=== PATIENT | female | born 1995 | race Caucasian/White ===

== ENCOUNTER 2024-10-15 12:08 | Outpatient (CLI) | payer MEDICARE, SELFPAY | END 2024-10-15 12:09 | disposition home or self-care (01) | PROVIDERS: PCP Nurse Practitioner Family; Visit Provider Obstetrics & Gynecology | DX: O20.9 Hemorrhage in early pregnancy, unspecified (principal); Z67.40 Type O blood, Rh positive; Z3A.01 Less than 8 weeks gestation of pregnancy | CPT/HCPCS: 84702; 86850; 86900; 86901 ==

== ENCOUNTER 2024-10-17 13:00 | Outpatient (CLI) | payer BC, SELFPAY ==
[2024-10-17 14:13] LABS: HCG Quantitative* 21.52 mIU/mL
== END 2024-10-17 13:01 | disposition home or self-care (01) ==
PROVIDERS: Obstetrics & Gynecology; PCP Nurse Practitioner Family; Referring Provider Obstetrics & Gynecology; Visit Provider Obstetrics & Gynecology
DX: O20.9 Hemorrhage in early pregnancy, unspecified (principal)
CPT/HCPCS: 36415; 84702

== ENCOUNTER 2024-10-19 10:07 | Outpatient (CLI) | payer BC, SELFPAY | END 2024-10-19 10:08 | disposition home or self-care (01) | PROVIDERS: PCP Nurse Practitioner Family; Visit Provider Obstetrics & Gynecology | DX: O36.80X0 Pregnancy with inconclusive fetal viability, not applicable or unspecified (principal) | CPT/HCPCS: 80053; 84702 ==

== ENCOUNTER 2024-10-29 07:26 | Outpatient (CLI) | payer BC, SELFPAY | END 2024-10-29 07:27 | disposition home or self-care (01) | LOC: NFLDREF 11-04 07:26 | PROVIDERS: PCP Nurse Practitioner Family; Referring Provider Nurse Practitioner Family; Visit Provider Obstetrics & Gynecology | DX: O36.80X0 Pregnancy with inconclusive fetal viability, not applicable or unspecified (principal) | CPT/HCPCS: 84702 ==